=== PATIENT | male | born 1975 | race Caucasian/White ===

== ENCOUNTER 2017-01-30 10:54 | Emergency (ER) | payer MEDICAID, OTHER ==
[~2017-01-30] VITALS: Ht 180.3 cm; Wt 88.8 kg
[2017-01-30] MEDS ORDERED: NEXI20CA PO (11:07)
--- NOTE | 2017-01-30 12:14 | REP ---
The lung mckeon are clear. The cardiac size is normal The andrei, mediastinum, and bony thorax are unremarkable. Impression: Negative PA and lateral chest. Signed by Case Bergman MD 01/30/2017 12:06 P
[2017-01-30 12:15] LABS: BASO # 0.1 K/mm3 (0.0-0.2); EOS # 0.2 K/mm3 (0.0-0.50); EOS % 4.2 % (0.0-3.0); LARGE UNSTAINED CELL # 0.1 K/mm3 (0.0-0.4); LYMPH # 2.1 K/mm3 (1.5-4.5); LYMPH % 33.2 % (24.0-44.0); MEAN CORPUSCULAR HEMOGLOBIN 30.8 pg (27.0-33.0); MEAN CORPUSCULAR HGB CONC 34.7 g/dl (32.0-36.5); MEAN CORPUSCULAR VOLUME 88.6 fl (80.0-96.0); MONO # 0.3 K/mm3 (0.0-0.8); MONO % 5.5 % (0.0-5.0); NEUTROPHILS # 3.2 K/mm3 (1.8-7.7); NEUTROPHILS % 54.1 % (36.0-66.0); PLATELET COUNT, AUTOMATED 253 k/mm3 (150-450); RED CELL DISTRIBUTION WIDTH 12.1 % (11.5-14.5); WHITE BLOOD COUNT 5.8 K/mm3 (4.0-10.0)
[2017-01-30 12:51] LABS: ANION GAP 5 MEQ/L (8-16); BLOOD UREA NITROGEN 9 MG/DL (7-18); CALCIUM LEVEL 9.6 MG/DL (8.5-10.1); CARBON DIOXIDE LEVEL 28 MEQ/L (21-32); CHLORIDE LEVEL 105 MEQ/L (98-107); CREATININE FOR GFR 0.85 MG/DL (0.70-1.30); FREE T4 1.08 NG/DL (0.76-1.46); GLOMERULAR FILTRATION RATE > 60.0 (>60); GLUCOSE, FASTING 85 MG/DL (70-105); MAGNESIUM LEVEL 2.4 MG/DL (1.8-2.4); POTASSIUM SERUM 3.6 MEQ/L (3.5-5.1); SODIUM LEVEL 138 MEQ/L (136-145)
[2017-01-30 14:18] VITALS: BP 120/75
--- NOTE | 2017-01-30 17:55 | ECGEPIP ---
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
== END 2017-01-30 14:32 | disposition home or self-care (01) ==
LOC: M ED 11:52
DX: R00.2 Palpitations (principal); Z79.899 Other long term (current) drug therapy

== ENCOUNTER → 2017-11-27 | Outpatient (REF) | payer OTHER ==
[2017-11-27 16:42] LABS: BASO # 0.1 10^3/uL (0.0-0.2); BASO % 1.4 % (0.0-1.0); EOS # 0.2 10^3/uL (0.0-0.50); EOS % 3.3 % (0.0-3.0); HEMATOCRIT 45.3 % (42.0-52.0); HEMOGLOBIN 15.5 g/dl (13.5-17.5); IMMATURE GRANULOCYTE % 0.3 % (0-3.0); LYMPH # 1.9 10^3/uL (1.5-4.5); LYMPH % 31.8 % (24.0-44.0); MEAN CORPUSCULAR HEMOGLOBIN 30.1 pg (27.0-33.0); MEAN CORPUSCULAR HGB CONC 34.2 g/dl (32.0-36.5); MONO # 0.4 10^3/uL (0.0-0.8); MONO % 7.4 % (0.0-5.0); NEUTROPHILS # 3.3 10^3/uL (1.8-7.7); NEUTROPHILS % 55.8 % (36.0-66.0); PLATELET COUNT, AUTOMATED 279 10^3/uL (150-450); RED BLOOD COUNT 5.15 10^6/uL (4.30-6.10); RED CELL DISTRIBUTION WIDTH 11.9 % (11.5-14.5); WHITE BLOOD COUNT 5.8 10^3/uL (4.0-10.0)
[2017-11-27 17:10] LABS: ALBUMIN 4.1 GM/DL (3.2-5.2); ALBUMIN/GLOBULIN RATIO 1.24 (1.00-1.93); ALKALINE PHOSPHATASE 72 U/L (45-117); ALT/SGPT 25 U/L (12-78); ANION GAP 7 MEQ/L (8-16); AST/SGOT 17 U/L (7-37); BILIRUBIN,TOTAL 0.6 MG/DL (0.2-1.0); BLOOD UREA NITROGEN 13 MG/DL (7-18); CALCIUM LEVEL 9.1 MG/DL (8.5-10.1); CARBON DIOXIDE LEVEL 28 MEQ/L (21-32); CHLORIDE LEVEL 106 MEQ/L (98-107); CHOLESTEROL LEVEL 199 MG/DL (<200); CHOLESTEROL RISK RATIO 4.145 (<5); CREATININE FOR GFR 0.94 MG/DL (0.70-1.30); FREE T4 0.96 NG/DL (0.76-1.46); GLOMERULAR FILTRATION RATE > 60.0 (>60); GLUCOSE, FASTING 86 MG/DL (70-100); HDL CHOLESTEROL 48 MG/DL (>40); LDL CHOLESTEROL 133.2 MG/DL (<100); NON-HDL-C 151 MG/DL; SODIUM LEVEL 141 MEQ/L (136-145); TOTAL PROTEIN 7.4 GM/DL (6.4-8.2); TRIGLYCERIDES LEVEL 89 MG/DL (<150)
== END ==
LOC: M SFHCCAPE 07:24
DX: F41.1 Generalized anxiety disorder (principal); Z13.6 Encounter for screening for cardiovascular disorders

== ENCOUNTER 2018-10-17 16:14 | Emergency (ER) | payer OTHER ==
[~2018-10-17] VITALS: Ht 180.3 cm; Wt 98.3 kg
[~2018-10-17 16:14] MED LIST: NEXI20CA PO
[2018-10-17 16:15] VITALS: BP 130/76
[2018-10-17] MEDS ORDERED: PARO5TAB (16:21)
--- NOTE | 2018-10-17 17:10 | REP ---
Right hand series: Four views. History: Trauma. Findings: Four views of the right hand demonstrate overall normal mineralization. There is no evidence of fracture, subluxation or joint effusion. Impression: Negative right hand radiographs. No fracture seen. Electronically Signed by Iggy Ross MD 10/17/2018 05:15 P
== END 2018-10-17 17:20 | disposition home or self-care (01) ==
LOC: M ED 16:14
DX: M67.432 Ganglion, left wrist (principal); Z79.899 Other long term (current) drug therapy

== ENCOUNTER → 2021-08-24 | Outpatient (REF) | payer BC ==
[~2021-08-24] MED LIST changes: +PARO5TAB
== END ==
LOC: M SFHCCAPE 14:05
PROVIDERS: ATTEND Physician Assistant
DX: J22 Unspecified acute lower respiratory infection (principal)

== ENCOUNTER → 2025-05-27 | Outpatient (CLI) | payer BC ==
[~2025-05-27] MED LIST changes: +PROHANCE 279.3MG/ML 15ML VIAL ONE; +PROHANCE 279.3MG/ML 5ML VIAL ONE
== END ==
LOC: M PLAIMG 07:20
PROVIDERS: ATTEND Student in an Organized Health Care Education/Training Program
DX: R42 Dizziness and giddiness (principal)